=== PATIENT | female | born 1990 | race Caucasian/White ===

== ENCOUNTER 2018-09-20 13:43 | Emergency (ER) | payer OTHER ==
[2018-09-20 13:53] VITALS: BP 126/75
[2018-09-20] MEDS ORDERED: PROPARACAINE 0.5% 15 ML OPHT DROP ONE (13:57)
[2018-09-20] MEDS ORDERED: FLUORESCEIN SODIUM 1 MG STRIP OP ONE (13:57)
[2018-09-20] MEDS ORDERED: PROPARACAINE 0.5% 15 ML OPHT DROP OP ONE (14:16)
--- NOTE | 2018-09-20 14:29 | EDPHY ---
General Time Seen by Provider: 09/20/18 14:02 Narrative: CLINICAL IMPRESSION: Right corneal abrasion ASSESSMENT/PLAN: 28-year-old female presents to the emergency department from her place of work after she scratched her right eye on a pine tree. She reports no visual defects. She does not wear contacts or glasses. She has obvious corneal abrasion on slit-lamp exam with no evidence of corneal ulceration, Janie sign, hyphema, or foreign body. She has ciprofloxacin at home and will check on expiration date otherwise a new prescription for antibiotic ophthalmic ointment provided. Ophthalmology referral given. Warning signs return to ED sooner alignment discharge. DIFFERENTIAL DX: Differential includes but not limited to corneal abrasion, corneal ulcer, foreign body, Janie sign, hyphema CHIEF COMPLAINT: Scratched right eye on [place] HPI: 28-year-old female presents to the emergency department with mild right eye pain after she ran into a pine tree while she was at work today. Patient works in the outdoors. She does not wear contacts or glasses. She reports no vision changes. She has been tearing. She applied ciprofloxacin drops that she had at home prior to arrival but is not clear if there or not. No prior eye surgery. No foreign body sensation. PAST MEDICAL HISTORY: None reported See triage summary and nurse notes for addition applicable history Pertinent Past Surgical History: None reported Family History: Noncontributory Social History: Otherwise healthy REVIEW OF SYSTEMS: A full 10 point review of systems was negative except for those mentioned in HPI. PHYSICAL EXAM: General Appearance: Alert, oriented, appropriate, cooperative, NAD, well hydrated, non-toxic appearing, VSS, no hypoxia. Eyes: PERRLA, no acute vision change, nystagmus, tearing noted. Conjunctiva pink, no pallor or injection. On slit-lamp exam, patient has no evidence of foreign body. Corneal abrasion over the central aspect of the cornea appreciated with fluorescein dye. No Janie sign. No evidence of hyphema. Skin: Warm, dry, no rashes, no nodules on palpation. MEDICAL DECISION MAKING: Patient was seen independently. Secondary supervising physician at time of evaluation was: Suyapa Flores. Diagnosis: Right corneal abrasion. New, requires workup Summary: See Assessment and Plan for summary of ED visit Patient Progress: Stable for discharge . - History Smoking Status: Never smoked - Objective Vital Signs: Initial Vital Signs Temperature (C) 36.7 C 09/20/18 13:51 Heart Rate 62 09/20/18 13:51 Respiratory Rate 16 09/20/18 13:51 Blood Pressure 126/75 H 09/20/18 13:51 O2 Sat (%) 97 09/20/18 13:51 O2 Delivery Mode Room Air Allergies/Adverse Reactions: codeine Allergy (Verified 09/20/18 13:51) Home Medications: Medication Instructions Recorded Erythromycin 0.5% 1 karla RTEYE Q6 7 Days #1 tube 09/20/18 Medications Given: Discontinued Medications Proparacaine HCl (Alcaine 0.5%) 1 drops OP EDNOW ONE Stop: 09/20/18 14:17 Last Admin: 09/20/18 14:39 Dose: 1 drop Departure - Departure Disposition: Home, Routine, Self-Care Clinical Impression: Corneal abrasion, right Qualifiers: Encounter type: initial encounter Qualified Code(s): S05.01XA - Injury of conjunctiva and corneal abrasion without foreign body, right eye, initial encounter Condition: Good Instructions: Corneal Abrasion (ED) Additional Instructions: DISCHARGE INSTRUCTIONS FROM YOUR DOCTOR Thank you for visiting our emergency department today. You were treated by a physician assistant news director today and your case was reviewed with our ED Attending physician. Please keep in mind that discharge from the emergency department does not mean that there is nothing wrong - it simply means that we have not identified an emergency condition that requires further evaluation or treatment in the hospital. You should always plan to follow up with primary care for re- evaluation of your condition in the next 2-3 days. If you have been referred to a specialist, please call as soon as possible (today or tomorrow) to schedule your follow up appointment at the appropriate time. YOU HAVE A CORNEAL ABRASION OF THE RIGHT EYE. THESE USUALLY HEAL WITHIN 2-3 DAYS. PLEASE CHECK THE CIPROFLOXACIN DROPS YOU HAVE AT HOME AND CONTINUE TO USE THESE LONG THEY ARE NOT . IF THEY ARE , AND A NEW PRESCRIPTION FOR ANTIBIOTIC DROPS WAS PROVIDED. PLEASE FOLLOW UP WITH AN EYE DOCTOR IN 3-4 DAYS TO RECHECK. REFERRAL WAS GIVEN IF NEEDED. RETURN TO THE EMERGENCY DEPARTMENT FOR INCREASED PAIN, VISION CHANGES, DISCHARGE FROM THE EYE , EYE SWELLING OR ANY OTHER CONCERN. People present with illnesses and injuries in different ways, and it is always possible that we have missed something. You may always return for re-evaluation if symptoms worsen or if they are not improving or if you develop new/different symptoms. Again, thank you for choosing our emergency department. We hope that you feel better. Referrals: NONE *PRIMARY CARE P,. [Primary Care Provider] - As per Instructions Nati Stern MD [Medical Doctor] - As per Instructions Prescriptions: Erythromycin 0.5% 1 karla RTEYE Q6 7 Days #1 tube
== END 2018-09-20 14:42 | disposition home or self-care (01) ==
DX: S05.01XA Injury of conjunctiva and corneal abrasion without foreign body, right eye, initial encounter (principal); W22.8XXA Striking against or struck by other objects, initial encounter